=== PATIENT | female | born 1970 | race Two or more races ===

== ENCOUNTER 2019-08-16 16:35 | Inpatient (IN) | payer OTHER ==
[~2019-08-16] VITALS: Ht 165.1 cm; Wt 110.0 kg
[2019-08-16 17:51] LABS: BASOPHILS % (AUTO) 1.2 % (0.0-2.0); EOSINOPHILS % (AUTO) 2.4 % (1.0-6.0); HEMATOCRIT 41.9 % (36-46); LYMPHOCYTES # (AUTO) 2.1 K/uL (1.0-4.8); LYMPHOCYTES % (AUTO) 24.5 % (22.0-44.0); MEAN CORPUSCULAR HEMOGLOBIN 30.9 pg (26.0-34.0); MEAN CORPUSCULAR HGB CONC 33.3 G/dL (31.0-37.0); MEAN CORPUSCULAR VOLUME 93 fL (80-100); MONOCYTES # (AUTO) 0.8 K/uL (0.1-1.0); MONOCYTES % (AUTO) 8.8 % (2.0-9.0); NEUTROPHILS # (AUTO) 5.4 K/uL (1.8-7.7); NEUTROPHILS % (AUTO) 63.1 % (40.0-70.0); PLATELET COUNT (AUTO) 322 K/uL (150-450); RED BLOOD CELL COUNT(AUTO) 4.51 MIL/uL (4.00-5.20); RED CELL DISTRIBUTION WIDTH 13.6 % (11.5-14.5)
[2019-08-16 18:00] LABS: ANION GAP 7 mmol/L (8-16); CALCIUM, TOTAL 9.2 mg/dL (8.8-10.5); CARBON DIOXIDE 30 mmol/L (22-29); CHLORIDE 103 mmol/L (98-107); CREATININE 0.85 mg/dL (0.60-1.30); GLOMERULAR FILTR. RATE CALC > 60 mL/min (>60); GLUCOSE,RANDOM 85 mg/dL (70-110); POTASSIUM 3.8 mmol/L (3.5-5.1); SODIUM SERUM 140 mmol/L (136-145); UREA NITROGEN, BLOOD 14 mg/dL (7-18)
[2019-08-16 18:08] LABS: ALANINE AMINOTRANSFERASE 52 U/L (12-78); ALBUMIN 3.9 g/dL (3.4-5.0); ALKALINE PHOSPHATASE 66 U/L (46-116); ASPARTATE AMINOTRANSFERASE 27 U/L (15-37); BILIRUBIN,TOTAL 0.4 mg/dL (0.1-1.0); TOTAL PROTEIN, SERUM 7.6 g/dL (6.4-8.2)
[2019-08-16 18:11] LABS: ACETAMINOPHEN < 2 mcg/mL (10-30)
[2019-08-16 18:21] LABS: SALICYLATE 0.5 mg/dL (2.8-20.0)
[2019-08-16 18:43] LABS: AMPHET/METH SCREEN,URINE NEGATIVE (NEGATIVE); BARBITURATE SCREEN, URINE NEGATIVE (NEGATIVE); BENZODIAZEPINES SCREEN,URINE POSITIVE (NEGATIVE); CANNABINOID SCREEN,URINE NEGATIVE (NEGATIVE); COCAINE SCREEN,URINE NEGATIVE (NEGATIVE); METHADONE SCREEN, URINE NEGATIVE (NEGATIVE); OPIATE SCREEN,URINE NEGATIVE (NEGATIVE); PHENCYCLIDINE SCREEN,URINE NEGATIVE (NEGATIVE)
[2019-08-16] MEDS ORDERED: HALOPERIDOL 5 MG TABLET PO PRN (20:00)
[2019-08-16] MEDS ORDERED: LORazepam 2 MG TABLET PO PRN (20:00)
[2019-08-16] MEDS ORDERED: ZOLPIDEM TARTRATE 10 MG TABLET PO PRN (20:00)
[2019-08-16 21:00] LABS: APPEARANCE,URINE CLEAR (CLEAR); BILIRUBIN,URINE NEGATIVE (NEGATIVE); GLUCOSE, URINE (UA) NEGATIVE (NEGATIVE); KETONES,URINE NEGATIVE (NEGATIVE); LEUKOCYTE ESTERASE ,URINE SMALL (NEGATIVE); NITRATE,URINE NEGATIVE (NEGATIVE); OCCULT BLOOD,URINE NEGATIVE (NEGATIVE); PROTEIN,URINE NEGATIVE (NEGATIVE)
[2019-08-16 21:21] LABS: RBC,URINE None Seen /HPF (0-2); WBC,URINE 0-2 /HPF (0-5)
[2019-08-16 21:22] LABS: BACTERIA,URINE None Seen /HPF (None Seen); SQUAMOUS EPITHELIAL CELL,UR Few /LPF (None Seen)
[2019-08-16 22:13] VITALS: BP 116/74
[2019-08-16] MEDS ORDERED: INFLUENZA VIRUS VACCINE QVS 2019-20 (3YR+)/PF 60 MCG/0.5 ML SYRINGE IM ONE (22:45)
[2019-08-17 08:07] LABS: CHOL/HDL RATIO 5.5 (3.9-5.7)
[2019-08-17 09:35] VITALS: BP 146/97
[2019-08-17 16:30] VITALS: BP 107/71
[2019-08-17] MEDS ORDERED: SERTRALINE HCL 50 MG TABLET PO SCH (21:00)
[2019-08-18 09:43] VITALS: BP 102/55
[2019-08-18 16:07] VITALS: BP 142/87
[2019-08-18] MEDS: SERTRALINE HCL 100 MG TABLET PO SCH (20:57)
[2019-08-19 08:30] VITALS: BP 121/78
[2019-08-19 20:05] VITALS: BP 124/74
[2019-08-19] MEDS: SERTRALINE HCL 100 MG TABLET PO SCH (20:25)
[2019-08-20 02:51] VITALS: BP 122/60
[2019-08-20 09:19] VITALS: BP 147/97
[2019-08-20] MEDS ORDERED: SERT100T12 PO (09:54)
== END 2019-08-20 11:15 | disposition home or self-care (01) | DRG 885 ==
LOC: EMS 16:47 → 3EI 21:01
PROVIDERS: ADMIT Psychiatry & Neurology Psychiatry; ATTEND Psychiatry & Neurology Psychiatry
DX: F33.2 Major depressive disorder, recurrent severe without psychotic features (principal); N39.0 Urinary tract infection, site not specified; Z79.899 Other long term (current) drug therapy; T42.4X2A Poisoning by benzodiazepines, intentional self-harm, initial encounter; Y92.89 Other specified places as the place of occurrence of the external cause; Z28.21 Immunization not carried out because of patient refusal
CPT/HCPCS: 51701; 93005; G0480; G0481

== ENCOUNTER 2021-03-08 14:09 | Emergency (ER) | payer OTHER ==
[~2021-03-08] VITALS: Ht 157.5 cm; Wt 90.9 kg
[~2021-03-08 14:09] MED LIST: SERT-162 PO
[2021-03-08 14:27] VITALS: BP 124/73
[2021-03-08 14:50] LABS: COVID AG,FIA SOURCE NASOPHARYNGEAL
== END 2021-03-08 16:21 | disposition home or self-care (01) ==
LOC: EMS 14:11
DX: R43.0 Anosmia (principal); Z20.822 Contact with and (suspected) exposure to COVID-19
CPT/HCPCS: 87426; 99283; U0003